=== PATIENT | male | born 1965 | race Caucasian/White ===

== ENCOUNTER 2024-02-14 12:31 | Emergency (ER) | payer OTHER, SELFPAY ==
[2024-02-14 12:48] VITALS: BP 134/92
[2024-02-14 12:51] LABS: Glucose - Point of Care 414 mg/dl (70-99)
[2024-02-14 13:00] LABS: % Basophils 0.9 % (0-2); % Immature Granulocytes 1.4 % (0-0.5); % Lymphocytes 21.6 % (20.5-51.1); % Monocytes 5.6 % (1.7-9.3); % Neutrophils 67.5 % (42.2-75.2); Absolute Basophils 0.1 10^3/uL (0-0.2); Absolute Eosinophils 0.3 10^3/uL (0-0.7); Absolute Immature Granulocytes 0.1 10^3/uL (0-0.05); Absolute Monocytes 0.5 10^3/uL (0.1-0.6); Absolute Neutrophils 6.2 10^3/uL (1.4-6.5); Hemoglobin 14.8 g/dL (13.0-18.0); Mean Corp Hgb Conc. 34.4 g/dL (33.0-37.0); Mean Corpuscular Hgb 29.4 pg (27.0-31.0); Mean Corpuscular Volume 85.3 fL (80.0-94.0); Mean Platelet Volume 9.4 fL (7.4-10.4); Nucleated Red Blood Cells % 0 % (-); Platelet Count 207 10^3/uL (130-400); Red Blood Cell Count 5.04 10^6/uL (4.70-6.10); Red Cell Dist. Width 12.5 % (11.5-14.5); White Blood Cell Count 9.2 10^3/uL (4.8-10.8)
[2024-02-14 13:20] LABS: Blood Urea Nitrogen 15 mg/dl (9-20); Chloride 99 mmol/L (98-107); Glucose 421 mg/dl (70-99); Potassium 4.8 mmol/L (3.5-5.1); Sodium 134 mmol/L (135-145); eGFR > 60.00
[2024-02-14 13:21] LABS: ALT (SGPT) 25 U/L (0-50); AST (SGOT) 21 U/L (17-59); Albumin 4.3 g/dl (3.5-5.0); Alkaline Phosphatase 102 U/L (38-126); Calcium 9.3 mg/dl (8.4-10.2); Carbon Dioxide 25 mmol/L (22-30); Total Bilirubin 0.4 mg/dl (0.2-1.3); Total Protein 7.4 g/dl (6.3-8.2)
[2024-02-14] MEDS: LR 2000 IV (13:43)
[2024-02-14] MEDS: NOVOLOG vial 10 UNITS SC (13:44)
[2024-02-14 14:00] VITALS: BMI 39.8
[2024-02-14 14:08] LABS: Urine Albumin Negative (Neg - Trace); Urine Bilirubin Negative (Negative); Urine Character Clear (Clear); Urine Color Yellow; Urine Glucose 3+ (Negative); Urine Ketone Negative (Negative); Urine Leukocyte Negative (Negative); Urine Nitrite Negative (Negative); Urine Occult Blood 1+ (Negative); Urine Specific Gravity 1.015 (<1.030); Urine Urobilinogen Negative (Neg - 1+)
[2024-02-14 14:16] LABS: Urine Red Blood Cell 0-2 /HPF (0-2); Urine Squamous Cell 0-2 /LPF (Few); Urine White Cell 0-2 /HPF (0-5)
[2024-02-14 15:14] LABS: Glucose - Point of Care 298 mg/dl (70-99)
--- NOTE | 2024-02-14 15:27 | ED.GENMED ---
History of Present Illness
General
Chief Complaint: Dizziness
Time Seen by Provider: 02/14/24 13:22
Travel History
Have you had any contact with someone who has COVID-19?: No
Do you have any symptoms of coronavirus? Fever > 100 degrees, chills, cough, shortness of breath, sore throat, loss of taste or smell, muscle aches, or headache?: No
History of Present Illness
History of Present Illness:
58-year-old male with history of hypertension, hyperlipidemia, and coronary artery disease status post IL presents to the emergency department for evaluation of increased thirst and urination as well as lightheadedness. States that he checked his
blood sugar yesterday and noted it was greater than 300. Due to worsening symptoms he came to the emergency department today. Has no prior history of diabetes. No chest pain or trouble breathing.
Past History
Past History
ED Past Medical History: CAD, GERD, HTN, Hypercholesterolemia, [place] (2008, October 2017) and Other (Alcohol and cocaine abuse)
ED Past Surgical History: Cardiac (PTCA with stent to the RCA 2008, 2017) and Orthopedic
Social History
Tobacco: Smoker
Alcohol: Occasional
Drug: Cocaine (on Occasion last use 11/09/2017)
Personal:
Living: alone
Employment: Disabled
Family History
Family History: CAD
Review of Systems
Review of Systems
Allergies reviewed?: Yes
All Other Systems: ROS reviewed and negative except as documented in HPI and ROS
Phy Exam
Physical Exam
Physical Exam:
GEN: Well appearing, NAD, WDWN
Eyes: PERRLA, EOMs intact, no scleral icterus
HENT: NCAT, oral mucosa moist
Lungs: CTAB, no wheezes, rales, rhonchi, normal chest wall excursion
Cardiac: RRR, no M/R/G, no peripheral edema. Radial pulses 2+ bilat
Abdomen: S, NT, ND, NABS, no masses or hepatosplenomegaly
Neuro: AO x 3
MSK: No gross deformity or ecchymosis. No edema. No digital clubbing
Skin: No rashes, petechiae. Normal color, no pallor or jaundice.
Psych: Calm, cooperative, proper hygiene
Course
Orders/Labs/Results
Orders:
Orders
02/14/24 12:54
Complete Blood Count/With Diff Urgent
Comprehensive Metabolic Panel Urgent
02/14/24 13:35
Insulin Aspart [NOVOLOG vial] 10 units SC NOW STA
02/14/24 13:36
Lactated Ringers [Lr] 2,000 ml IV BOLUS
02/14/24 13:54
Urinalysis Reflex To Culture Urgent
Date Specimen was Collected: 02/14/24
Time Specimen was Collected: 13:52
Urine Microscopic Reflex Cult Urgent
Abnormal Lab Results
02/14/24 02/14/24 02/14/24
12:49 12:54 13:54
Abs Immat Gran (auto) 0.1 H 10^3/uL
(0-0.05)
Immature Gran % 1.4 H %
(0-0.5)
Sodium 134 L mmol/L
(135-145)
Glucose 421 H mg/dl
(70-99)
Ur Occult Blood Reflex 1+ A
(Negative)
Urine Glucose 3+ A
(Negative)
POC Glucose 414 H mg/dl
(70-99)
02/14/24
15:13
Abs Immat Gran (auto)
Immature Gran %
Sodium
Glucose
Ur Occult Blood Reflex
Urine Glucose
POC Glucose 298 H mg/dl
(70-99)
02/14/24 12:54
02/14/24 12:54
Vital Signs
Initial and Last Documented VS:
Initial Vital Signs
Temp Pulse Resp BP Pulse Ox
98.2 F 99 18 134/92 94
02/14/24 12:48 02/14/24 12:48 02/14/24 12:48 02/14/24 12:48 02/14/24 12:48
Last Documented Vital Signs
Temp Pulse Resp BP Pulse Ox
98.2 F 99 18 134/92 94
02/14/24 12:48 02/14/24 12:48 02/14/24 12:48 02/14/24 12:48 02/14/24 12:48
MDM/Problems Addressed
MDM/Problems Addressed:
He is hyperglycemic however no evidence for DKA or HHS with normal anion gap and no ketonuria. Treated with IV fluids and subcutaneous insulin with moderate improvement in glucose. Given the patient's prior history of cardiovascular disease would
not recommend starting this area initially, placed on metformin twice daily with close primary care follow-up. I did communicate with the primary care physician via wiseriaging to help facilitate follow-up. Counseled the patient on
glycemic index and dietary/exercise modifications
*Critical Care Note
Total Time (30-74mins, 75-104mins- exclusive of procedures): Not Applicable
ED Attending Note
-
Portions of this chart may have been created with voice recognition software.� Occasional wrong word or��sound alike� substitutions may have occurred due to the inherent limitations of voice recognition software.
Discharge Plan
Departure
Patient Disposition: Home (Routine Discharge)
Date of Disposition: 02/14/24
Time of Disposition: 16:06
Patient with high blood pressure during this ER visit?: No
Discharge Problem:
Diabetes mellitus, new onset
Instructions: Glycemic Index, Diabetes and diet
Prescriptions:
New
metformin 500 mg tablet
500 mg PO BID Qty: 60 0RF
No Action
atorvastatin 40 MG tablet
40 mg PO DAILY
ascorbic acid (vitamin C) [Vitamin C] 500 MG tablet
500 mg PO DAILY
nitroglycerin 0.4 MG tablet, sublingual
0.4 mg sublingual [id number] PRN (Reason: chest pain)
cholecalciferol (vitamin D3) 1,000 UNITS tablet
1,000 units PO DAILY
aspirin 81 MG tablet,chewable
162 mg PO DAILY
lisinopril 2.5 MG tablet
2.5 mg PO DAILY
metoprolol tartrate 12.5 MG tablet
12.5 mg PO BID
methylprednisolone [Medrol (Guido)] 4 MG tablets,dose pack
4 tab PO . DIRECT Qty: 1 0RF
pantoprazole [Protonix] 40 mg tablet,delayed release (DR/EC)
40 mg PO DAILY Qty: 30 0RF
Referrals:
Chip Armenta MD [Family Provider] -
Interventions
Interventions:
*Risk Screen - Suicide Last Done: 02/14/24 14:00
*General Assessment Last Done: 02/14/24 14:00
*Neglect/Abuse Screening Last Done: 02/14/24 14:00
ED- Fall Risk Assessment Last Done: 02/14/24 14:00
*ED COVID-19 Vaccine History Last Done: 02/14/24 14:00
ED- Neurological Assessment Last Done: 02/14/24 15:44
ED- Cardiac Assessment Last Done: 02/14/24 14:00
ED Swallowing Screen Last Done: 02/14/24 14:00
Discharge Date and Time
Print Language: KENYAN
[2024-02-14 16:40] VITALS: BP 157/84
== END 2024-02-14 16:51 | disposition home or self-care (01) ==
LOC: EMR 12:31
PROVIDERS: Emergency Medicine; Physician Assistant; EMERGENCY PHYSICIAN Emergency Medicine; FAMILY PHYSICIAN Family Medicine
DX: E11.9 Type 2 diabetes mellitus without complications (principal); I10 Essential (primary) hypertension; E78.00 Pure hypercholesterolemia, unspecified; I25.10 Atherosclerotic heart disease of native coronary artery without angina pectoris; I25.2 Old myocardial infarction; F17.200 Nicotine dependence, unspecified, uncomplicated; K21.9 Gastro-esophageal reflux disease without esophagitis; Z82.49 Family history of ischemic heart disease and other diseases of the circulatory system; Z95.5 Presence of coronary angioplasty implant and graft
CPT/HCPCS: 99283; 96372; 96360; 96361; 80053; 81003; 81015; 82962; 85025

== ENCOUNTER → 2024-07-02 18:00 | Outpatient (REF) | payer OTHER, SELFPAY ==
--- NOTE | 2024-06-19 10:40 | PN.DIAED02 ---
Referral
DSME Class Series Code: [id number]
Referred For: Diabetes Self-Management Training, Medical Nutrition Therapy, Self-Blood Glucose Monitoring, Long-Term Complication Instruction, Accute Complication Instruction, Care Coordination, Disease Management
PHI Release Authorization Form Signed: No
Demographic
(1) Type 2 diabetes mellitus without complications
Status: Acute Onset Date: ~05/11/24
Qualifiers:
Diabetes mellitus buttermaker helper insulin use: without senior living use Qualified Code(s): E11.9 - Type 2 diabetes mellitus without complications
Code(s): E11.9 - Type 2 diabetes mellitus without complications
Patient's primary language-: Dutch
Education: Some college
Occupation: Other (Disabled)
Hours Worked/Week: > 40
- Social
Primary Support Person: Self
Primary Care Takers: Self
Living Arrangements: Self & spouse
- Learning Methods
Preferred Method: Lecture/audio
Barriers to Learning: None
Glycemic Control
- Blood Glucose Monitoring Assessment
Date: 05/18/24 (FBG 153)
Blood glucose monitoring at home: Yes
Monitor Brands: [employer]
Frequency: 1x per day
Time: fasting
Patient uses Alternate Site Testing: No
Patient instructed on Use and Limitation: No
- Hemoglobin A1c
Date: 05/11/24
A1C Percentage (%): 8.8
Medical History of Diabetes
Family Diabetes History: Grandfather
Previous Diabetes Education: No
Previous visit with Dietitian: No
Complications/Comorbidity/Specialist: Heart Disease, Hypertension, Hyperlipidemia
Measures
- Anthropometrics
Height: 5 ft 6 in
Actual Weight: 103.873 kg
- Blood Pressure / Pulse
Blood pressure: 146/97
Pulse: 99
- Diabetes Management
Medical Management for Diabetes: Complete physical exam (05/11/24), Dental exam (08/03/2023), Pneumonia vaccination (07/01/2022)
Self-Care
- Tobacco Usage
Do you now, or have you ever smoked?: Heavy tobacco smoker (11 cigarettes or more per day)
Amount (per day): 1/2 pack per day
Smoking Cessation Referral and/or Information provided: Yes
- Alcohol & Drugs Usage
Drinks Alcohol: Yes
Amount/day: Social Occasions
Uses Recreational Drugs: No
- Meals & Dining
Meals & Dining: Patient skips meals: Yes, Food Intolerance / Allergy: No, Cultural / Scientologist Dietary Needs: No
Primary Food Manpower Development Manager: Self
Primary Multiple Sclerosis Nurse: Self
Dining Out Frequency: 1-3x per week
- Physical Activity
Physical Limitation: No
Patient participates in physical Activity: No
- Self Foot-Care
Foot Problems: None
Performs Self Foot-Exam: Yes
Frequency: Daily
- Patient-Self Assessment
Diabetes Knowledge: Poor
Feelings About Diabetes: Acceptance
General Health: Fair
Importance of Health: Extremely
Stress Level: Medium
Diabetes Interferes With:: Family/social activities
Barriers to Diabetes Management: Nothing
Depression Survey Score: 5
- Diabetes Identification
Carries Diabetes Identification: No
Diabetes Identification Information Provided: No
Care Plan
- Education Needs
Patient Education Needs: Diabetes disease process, Chronic complications, Acute complications, Monitoring, Physical activity, Psychosocial Adjustment, Nutritional management, Goal setting & problem solving
Recommended Diabetes Training Program based on assessment: Outpatient Diabetes Education Program
- Plan of Care
Plan of Care:
Met with Michael today for registration and initiation of Diabetes Self management. Pt was recommended by his PCP due to recent Dx of T2DM with an A1C of 8.8% that was noted on recent blood work. Patient states that he was started on Mounjaro 2.5mg
weekly and dose has been incrementally adjusted to a current dose of 7.5mg weekly.
Reports that he has a glucose monitor- [employer] and is monitoring his blood sugars once a day. Reviewed the testing pattern and set a schedule for him to monitor blood sugars 2x/day- Fasting and 2 hrs after dinner.
Pt was counseled with emphasis on the importance of weight loss, Physical activity, need to adhere to a healthy life style including healthy eating, taking his medications and monitoring blood glucose. We spent some time discussing dietary choices.
Goals for physical activity were established; pt will start exercising for 30 minutes/5 days a week.
--- NOTE | 2024-06-19 11:44 | PN.DIAED04 ---
Education Record
- Education Record
Class Attended: Other (Pre-Registration for DSME Classes)
DSME Class Series Code: [id number]
Instructor: Nurse Practitioner (ARIANNE Villegas)
Class Length (mins): 30
Pre-Program Knowledge: No knowledge
Pre-Test Score (%): 35
Goals
- Goal 1
Being Active: Exercise 30 minutes-5 times per week
Goals To Be Evaluated: Exercise 30 mins-5x/week
- Goal 2
Healthy Eating: Make better food choices, Follow meal plan, Reduce portion sizes
Goals To Be Evaluated: Make better food choices. Follow meal plan. Reduce portion sizes
- Goal 3
Monitoring: Follow monitoring schedule
Goals To Be Evaluated: Follow monitoring times
== END ==
LOC: DES 18:00
PROVIDERS: ATTENDING PHYSICIAN Family Medicine
DX: E11.9 Type 2 diabetes mellitus without complications (principal)
CPT/HCPCS: 99078

== ENCOUNTER → 2024-07-16 18:00 | Outpatient (REF) | payer OTHER, SELFPAY | LOC: DES 18:00 | PROVIDERS: ATTENDING PHYSICIAN Family Medicine | DX: E11.9 Type 2 diabetes mellitus without complications (principal) | CPT/HCPCS: 99078 ==

== ENCOUNTER 2024-12-10 13:17 | Emergency (ER) | payer MEDICARE, SELFPAY ==
[2024-12-10 13:24] VITALS: BP 166/109
[2024-12-10 14:00] VITALS: BP 165/98
[2024-12-10 14:05] VITALS: BP 165/98
[2024-12-10 14:07] VITALS: BMI 32.2
--- NOTE | 2024-12-10 14:42 | ED.GENMED ---
History of Present Illness
General
Chief Complaint: Abdominal Symptoms
Source: patient
Time Seen by Provider: 12/10/24 14:28
History of Present Illness
History of Present Illness:
59-year-old male presents to the emergency room complaining of constipation. Patient states that he began feeling constipated about 6 or 7 days ago. He attributes this to not drinking enough water 1 day. He has been able to pass any solid stool
since then. Over the past 24 to 48 hours he has had some watery stool but he can feel 'a ball of stool' in his rectum. He is attempted enemas at home as well as stool softeners without success. He has crampy abdominal pain intermittently. No
fever or chills.
Past History
Past History
ED Past Medical History: CAD, GERD, HTN, Hypercholesterolemia, [place] (2008, October 2017) and Other (Alcohol and cocaine abuse)
ED Past Surgical History: Cardiac (PTCA with stent to the RCA 2008, 2017) and Orthopedic
Social History
Tobacco: Smoker
Alcohol: Occasional
Drug: Cocaine (on Occasion last use 11/09/2017)
Personal:
Living: alone
Employment: Disabled
Family History
Family History: CAD
Phy Exam
Physical Exam
Physical Exam:
General: Awake, Alert, Oriented X3. No acute distress.
Vitals: unremarkable
Head: Atraumatic
Eyes: Pupils equal, EOMI
Throat: Airway intact, no exudates
Neck: Trachea midline
Lungs: Clear and equal b/l
Heart: Regular rate, no murmurs
Abd: Soft, Nontender, No pulsatile mass
Rectal: Significant stool burden noted on rectal vault. Manually disimpacted.
Neuro: Nonfocal
Skin: Warm, dry, no rash
Extremities: pulses equal b/l, no edema
Course
Orders/Labs/Results
Orders:
Orders
12/10/24 13:18
Electrocardiogram (*1) Urgent
Reason for Study: Chest Pain
EKG- Treatment ONCE
Vital Signs
Initial and Last Documented VS:
Initial Vital Signs
Temp Pulse Resp BP Pulse Ox
97.6 F 101 20 166/109 98
12/10/24 13:24 12/10/24 13:24 12/10/24 13:24 12/10/24 13:24 12/10/24 13:24
Last Documented Vital Signs
Temp Pulse Resp BP Pulse Ox
97.6 F 91 12 165/98 98
12/10/24 14:00 12/10/24 14:05 12/10/24 14:05 12/10/24 14:05 12/10/24 14:00
MDM/Problems Addressed
Differential Diagnosis Includes:
Constipation, fecal impaction, diverticulitis
MDM/Problems Addressed:
Patient disimpacted and feels much better. He was able to have a bowel movement in the bathroom on his own. Patient stable for discharge home. Will discharge with a short course of lactulose.
*Pulse Oximetry
Patient hypoxic: no
*Critical Care Note
Total Time (30-74mins, 75-104mins- exclusive of procedures): Not Applicable
ED Attending Note
-
Portions of this chart may have been created with voice recognition software.� Occasional wrong word or��sound alike� substitutions may have occurred due to the inherent limitations of voice recognition software.
Discharge Plan
Departure
Patient Disposition: Home (Routine Discharge)
Date of Disposition: 12/10/24
Time of Disposition: 15:09
Patient with high blood pressure during this ER visit?: Yes
Condition: Good
Discharge Problem:
Fecal impaction, Constipation
Instructions: Constipation, Adult (DC), Fecal Impaction (DC)
Prescriptions:
New
lactulose 10 gram/15 mL solution
20 g PO BID Qty: 473 0RF
No Action
atorvastatin 40 MG tablet
40 mg PO DAILY
ascorbic acid (vitamin C) [Vitamin C] 500 MG tablet
500 mg PO DAILY
nitroglycerin 0.4 MG tablet, sublingual
0.4 mg sublingual [id number] PRN (Reason: chest pain)
cholecalciferol (vitamin D3) 1,000 UNITS tablet
1,000 units PO DAILY
aspirin 81 MG tablet,chewable
162 mg PO DAILY
lisinopril 2.5 MG tablet
2.5 mg PO DAILY
metoprolol tartrate 12.5 MG tablet
12.5 mg PO BID
methylprednisolone [Medrol (Guido)] 4 MG tablets,dose pack
4 tab PO . DIRECT Qty: 1 0RF
pantoprazole [Protonix] 40 mg tablet,delayed release (DR/EC)
40 mg PO DAILY Qty: 30 0RF
metformin 500 mg tablet
500 mg PO BID Qty: 60 0RF
Referrals:
Chip Armenta MD [Family Provider] -
Activity Restrictions/Additional Instructions:
Increase fluid intake as we discussed. I have sent a prescription for a laxative called Lactulose. You can take this twice a day for a couple days to make sure you are fully evactuation.
Interventions
Interventions:
*Risk Screen - Suicide Last Done: 12/10/24 14:07
*General Assessment Last Done: 12/10/24 14:12
*Neglect/Abuse Screening Last Done: 12/10/24 14:07
*ED- Fall Risk Assessment Last Done: 12/10/24 14:07
*ED COVID-19 Vaccine History Last Done: 12/10/24 14:07
BH-Ljahhn-Ehkxhbkjrd Assessment Last Done: 12/10/24 14:07
Discharge Date and Time
Print Language: TURKISH
== END 2024-12-10 15:39 | disposition home or self-care (01) ==
LOC: EMR 13:17
PROVIDERS: EMERGENCY PHYSICIAN Emergency Medicine; FAMILY PHYSICIAN Family Medicine
DX: K56.41 Fecal impaction (principal); E78.00 Pure hypercholesterolemia, unspecified; I10 Essential (primary) hypertension; I25.10 Atherosclerotic heart disease of native coronary artery without angina pectoris; I25.2 Old myocardial infarction; F17.200 Nicotine dependence, unspecified, uncomplicated; Z95.5 Presence of coronary angioplasty implant and graft
CPT/HCPCS: 99283; 93005